=== PATIENT | female | born 1985 ===

== ENCOUNTER 2025-02-08 16:03 | Emergency (ER) | payer OTHER, SELFPAY ==
--- NOTE | ~2025-02-08 | XR_ITS ---
EXAMINATION: XR chest 2V 02/08/2025 16:38 INDICATION: Chest pain. Body aches. PROCEDURE: 2 view chest COMPARISON: No prior studies for comparison. FINDINGS: The lungs are clear. The cardiomediastinal silhouette is within normal limits. There are no pleural effusions. There is no pneumothorax suspected. IMPRESSION: 1: NO ACUTE CARDIOPULMONARY DISEASE. Reviewed, dictated and finalized at location A.
--- OUTSIDE RECORDS SUMMARY | 2025-02-08 16:05 | XMS_ITS | Clinical Summary ---
Author Organization [facility] Address [address] [place] [address] Care Team Providers Care Pyrometer Mechanic Name Role Phone No, Physician Primary Care Provider [phone] Allergies Active Allergy Reactions Criticality Noted Date Comments Codeine Hives Medium 03/17/2021 Penicillins Hives Medium 11/22/2018 Medications Hospital, Clinic, or Other Facility Administered Medication Ordered Dose Route Frequency Start Date End Date Status etonogestreL (NEXPLANON) implant 68 mgIndications:Pregna ncy Contraception 68 mg subderm Continuous (implanted device) 03/28/2024 03/28/2027 Active Active Problems Problem Noted Date Diagnosed Date Gonorrhea 01/24/2020 Overview (01/24/2020): Patient diagnosed with gonorrhea on admission and received 250mg of ceftriaxone and 1000mg of azithromycin. CT and trich negative. [] GIL [] Partner treatment Polysubstance abuse 01/24/2020 Overview (01/24/2020): [facility] admission: Patient with reported meth use last 2 days prior to admission and has been smoking meth for years. UDS also positive for fentanyl; however, patient denied ever having used. COWS scoring <5 throughout admission without signs or symptoms of withdrawal. SW phone consultation completed, and patient declined further resources connection stating meth use not an ongoing problem [] UDS on admission Supervision of 01/24/2020 Overview (01/24/2020): First Trimester: [x] Dating Criteria: 3T [x] Labs: Rh pos/Ab none/HIV NR/Rub imm/RPR NEG/HepB NR/GC/CT pos/neg [x] Genetic Screening: not performed [] Hgb electrophoresis (if indicated): [x] GC/CT/trich [] UCx: [] Pap: [] ASA ppx [] PNBHS referral (if indicated) [] Provided info on classes 2nd Trimester: [] Anatomy ultrasound [] CBC [] 1hr gtt at 24-28wks: [] Flu Shot (Sep-Jun) [x] Tdap (27-36wks): given 01/18 [] Rhogam (if Rh neg): 3rd Trimester: [x] CBC/HIV/RPR/T&S [x] GBS at 36 weeks: negative 01/17 [x] GC/CT/trich *s/p BMZ^01/19* Counseling: [x] Method of delivery: anticipate [x] Method of contraception: nexplanon [x] Method of feeding: undecided Threatened premature labor in third trimester Overview (01/24/2020): [facility] ADMISSION 01/17-01/18: Patient with a history of labor presented as a transfer from OSH for concern of PTL. SSE on admission revealed small amounts of dark, pink mucous with negative Valsalva. SVE at OSH was 2/80/-[address] [facility] 3/50/-3 x2. She received 2L of fluids boluses and nifedipine for tocolysis. She was given 2 doses of BMZ with window up on 01/19 at 1500. The following day, she had no contractions and a stable SVE at 3/50/-3. Tobacco use 01/24/2020 Limited care in third trimester 020 Overview (01/24/2020): - Dated by US 01/17 at [facility] when presented in labor Gestational hypertension, third trimester 2019 Overview (01/24/2020): - gHTN diagnosed during [facility] admission with mild range blood pressures >4 hours apart. PreE labs sent and within normal limits and UPC of 0.08. [] weekly labs [] twice weekly testing [] serial growth (last 7/2, 2164g (50%) w/ normal anatomy, dating US) [] IOL at 37 weeks Encounters Date Type Department Care Team Description 02/08/2025 3:06 PM CDT - 02/08/2025 3:[address] [facility] Emergency Department [address] [place] [id number] Discharge Disposition: Left Against Medical Advice 02/07/2025 9:21 PM CDT - 02/08/2025 1:43 AM CDT Emergency [address] [address] Discharge Disposition: Left Against Medical Advice from Last 3 Months Immunizations Immunization Administration Dates Next Due Tdap 01/19/2020 Surgical History Surgery Date Site/Laterality Comments US ABDOMEN COMPLETE W LIVER DOPPLER (C) 01/17/2018 R ight US ABDOMEN COMPLETE W LIVER DOPPLER (C) 02/11/2018 R ight BREAST BIOPSY Left Medical History Medical History Date Comments Hypertension Preeclampsia, third trimester la [facility] pg Mental disorder depression Family History Medical History Relation Name Comments Breast cancer Neg Hx Ovarian cancer Neg Hx Social History Tobacco Use Types Packs/Day Years Used Date Smoking Tobacco: Every Day Cigarettes Alcohol Use Standard Drinks/Week Comments Not Currently 0 (1 standard drink = 0.6 oz pur e alcohol) AUDIT-C Answer Date Recorded Q1: How often do you have a drink containing alc ohol? Never 04/15/2021 Average Number of Drinks Not on file 021 Frequency of Binge Drinking Not on file 03/21 Personal Safety Answer Date Recorded Have you ever been in or are you currently in a harmful physical or emotional relationship or is someone making you feel afraid or unsafe? 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 Gender Identity Not on file Sexual Orientation Not on file Obstetrics History Para Term AB IAB SAB Ectopic Multiple Livin g Live Births 9 8 6 1 8 Date Outcome GA Total Labor Labor/2nd/3rd Weight Sex Type Anes PTL Isabel A1 A5 Name Clin Term Term Term Term Term Term Para Last Filed Vital Signs Vital Sign Reading Time Taken Comments Blood Pressure 107/76 02/07/2025 11:44 PM CDT Pulse 86 02/07/2025 11:44 PM CDT Temperature 36.3 C (97.3 F) 02/07/2025 9:22 PM CDT Respiratory Rate 18 02/07/2025 11:44 PM CDT Oxygen Saturation 100% 02/07/2025 11:44 PM CDT Inhaled Oxygen Concentration - - Weight 74.4 kg (164 lb 0.4 oz) 02/07/2025 9:30 P M CDT Height 162.6 cm (5' 4.02) 03/28/2024 12:54 PM C DT Body Mass Index 28.14 03/28/2024 12:54 PM CDT Plan of Treatment Health Maintenance Due Date Last Done Comments Cervical Cancer Screening 1986 Depression Screening 1986 Hepatitis C Screening 1986 Varicella Vaccines (1 of 2 - 13+ 2-dose series) 1999 Regular Well Visit/Exam 18-64 2004 Pneumococcal vaccine <65 (1 of 2 - PCV) 2005 Influenza Vaccine (#1) 2025 08/13/2018, 2005 DTaP/Tdap/Td Vaccine (9 - Td or Tdap) 01/18/2030 01/19/2020, 08/13/2018, 12/13/2011, Additional history exists Hepatitis B Screening Completed 12/22/1996 , 08/30/1996, 06/28/1996 HPV Vaccines Aged Out No longer eligi ble based on patient's age to complete this topic Procedures Procedure Name Priority Date/Time Associated Diagnosis Comments EGFR STAT 02/07/2025 11:54 PM CDT DIFFERENTIAL AUTO STAT 02/07/2025 11: 54 PM CDT COMPREHENSIVE METABOLIC PANEL STAT 02/07/2025 11:54 PM CDT CBC WITH AUTO DIFFERENTIAL STAT 02/07/2025 11:54 PM CDT POCT HCG, URINE Routine 02/07/2025 9:52 PM CDT URINALYSIS, MICROSCOPIC ONLY STAT 02/07/2025 9:47 PM CDT URINALYSIS AND REFLEX TO MICROSCOPIC AND CULTURE STAT 02/07/2025 9:47 PM CDT from Last 3 Months Results * eGFR (02/07/2025 11:54 PM CDT) eGFR >90 >=60 mL/min/1. 73 m2 Comment: Interpretive Data Reference Interval Normal >/= 90 mL/min/1.73m2 Mildly decreased* 60 - 89 mL/min/1.73m2 Mildly to moderately decreased 45 - 59 mL/min/1.73m2 Moderately to severely decreased 30 - 44 mL/min/1.73m2 Severely decreased 15 - 29 mL/min/1.73m2 Kidney Failure < 15 mL/min/1.73m2 *Relative to young adult level Estimated glomerular filtration rate is determined by the 2020 CKD-EPI equation recommended by the National Kidney Foundation (A Unifying Approach to GFR Estimation: Recommendations of the NKF-ASK Task Force on Reassessing the Inclusion of Race in Diagnosing Kidney Disease, JASN 2020). The CKD-EPI equation should not be used for patients with unstable renal function and has not been validated in children and those over 70. Current interpretive data was last reviewed 2021. Blood 02/07/2025 11:5 4 PM CDT 02/08/2025 Ed Chaparro MD LAB BLOOD ORDERABLE S Final Result [facility] [address] [facility] [place] [address] * (ABNORMAL) Differential, auto (02/07/2025 11:54 PM CDT) Neutrophil abs 8.22(H) 1.50 - 6.50 K/cumm Imm gran abs 0.02 0.00 - 0.10 K/cumm [facility] Lymphocyte abs 1.27 0.80 - 3.30 K/cumm [facility] Monocyte abs 0.55 0.20 - 0.80 K/cumm [facility] Eosinophil abs 0.30 0.00 - 0.50 K/cumm [facility] Basophil abs 0.03 0.00 - 0.10 K/cumm [facility] Neutrophil pct 79.1 % [facility] Comment: Interpretive Data Percent cell count reference ranges are not reported, since discordance with absolute values may lead to misinterpretation of CBC data. Current Interpretive Data was last revised on 2017. Imm gran pct 0.2 % [facility] Comment: Interpretive Data Percent cell count reference ranges are not reported, since discordance with absolute values may lead to misinterpretation of CBC data. Current Interpretive Data was last revised on 2017. Lymphocyte pct 12.2 % [facility] Comment: Interpretive Data Percent cell count reference ranges are not reported, since discordance with absolute values may lead to misinterpretation of CBC data. Current Interpretive Data was last revised on 2017. Monocyte pct 5.3 % [facility] Comment: Interpretive Data Percent cell count reference ranges are not reported, since discordance with absolute values may lead to misinterpretation of CBC data. Current Interpretive Data was last revised on 2017. Eosinophil pct 2.9 % [facility] Comment: Interpretive Data Percent cell count reference ranges are not reported, since discordance with absolute values may lead to misinterpretation of CBC data. Current Interpretive Data was last revised on 2017. Basophil pct 0.3 % [facility] Comment: Interpretive Data Percent cell count reference ranges are not reported, since discordance with absolute values may lead to misinterpretation of CBC data. Current Interpretive Data was last revised on 2017. Blood 02/07/2025 11:5 4 PM CDT 02/08/2025 us Ed Chaparro MD LAB BLOOD ORDERABLE S Final Result [facility] [address] [facility] [place] [address] * (ABNORMAL) CBC with auto differential (02/07/2025 11:54 PM CDT) WBC 10.39(H) 3.80 - 9.90 K/cumm Hgb 16.4(H) 11.9 - 15.5 g/dL [facility] Hct 46.6(H) 35.6 - 45.5 % [facility] Plt 389 150 - 400 K/cumm [facility] MPV 9.3 9.1 - 12.3 fL [facility] RBC 4.71 3.90 - 5.20 M/cumm [facility] MCV 98.9(H) 81.3 - 96.4 fL [facility] MCH 34.8(H) 27.1 - 33.3 pg [facility] MCHC 35.2 32.3 - 35.7 g/dL [facility] RDW CV 11.4 11.1 - 14.9 % [facility] RDW SD 41.4 35.7 - 48.1 fL [facility] NRBC abs 0.00 0.00 - 0.01 K/cumm [facility] Blood Venous blood specimen / Unknown 02/07/2025 11:54 PM CDT 02/08/2025 Ed Chaparro MD LAB BLOOD ORDERABLE S Final Result [facility] [address] [facility] [place] [address] * Comprehensive metabolic panel (02/07/2025 11:54 PM CDT) Sodium 137 135 - 145 mmol/L Potassium, pl 4.3 3.3 - 4.9 mmol/L [facility] Chloride 104 97 - 110 mmol/L [facility] CO2 22 22 - 32 mmol/L [facility] Anion gap 11 2 - 15 mmol/L [facility] BUN 18 6 - 25 mg/dL [facility] Creatinine 0.83 0.60 - 1.10 mg/dL [facility] Glucose 134 70 - 199 mg/dL [facility] Comment: Interpretive Data Fasting glucose >/= 126 mg/dl is diagnostic for diabetes. Fasting is defined as no caloric intake for at least 8 hours. Fasting glucose between 100 mg/dl to 125 mg/dl is diagnostic of prediabetes. In a patient with classic symptoms of hyperglycemia or hyperglycemic crisis, a random glucose >/= 200 mg/dl is diagnostic for diabetes. In the absence of unequivocal hyperglycemia, results should be confirmed by repeat testing. The classification and Diagnosis of Diabetes Diabetes Care 2021; 46: S19-S40. Current interpretive data was last revised 2022. Calcium 8.9 8.5 - 10.3 mg/dL [facility] Bilirubin, total 0.9 0.1 - 1.2 mg/dL [facility] Protein, pl 7.8 6.5 - 8.5 g/dL [facility] Albumin 4.5 3.5 - 5.0 g/dL [facility] Alk phos 82 40 - 130 Units/L [facility] ALT 18 7 - 45 Units/L [facility] AST 17 10 - 45 Units/L [facility] Blood Venous blood specimen / Unknown 02/07/2025 11:54 PM CDT 02/08/2025 Ed Chaparro MD LAB BLOOD ORDERABLE S Final Result Performing Organization Address City/State/[facility] Co de Phone Number [facility] [address] [facility] Department [place] [address] * POCT hCG, urine (02/07/2025 9:52 PM CDT) HCG, ur, POC Negative Negative Lot Number [id number] QC Backgroud Clear Acceptable QC Control Line Acceptable Urine 02/07/2025 9:52 PM CDT Ed Chaparro MD POINT OF CARE TEST ORDERABLES Final Result * (ABNORMAL) Urinalysis reflex to microscopic and culture Urine (02/07/2025 9:47 PM CDT) Color, ur Yellow Yellow Clarity, ur Cloudy(A) Clear [facility] Specific gravity, ur 1.028 1.003 - 1.030 [facility] pH, urine 5.5 [facility] Comment: Interpretive Data U rine pH is affected by diet, medications, systemic acid-base disturbances, and renal tubular function. pH may affect urinary stone formation. For example, urine pH below 6.0 may help reduce the tendency for calcium phosphate stones and pH greater than 6.0 may reduce the tendency for uric acid stone formation. Source: [facility] Current Interpretive Data was last revised on 2017 Protein, ur ql Negative Negative [facility] Glucose, ur ql Negative Negative [facility] Ketones, ur Negative Negative [facility] Bilirubin, ur Negative Negative [facility] Blood, ur 1+(A) Negative [facility] Urobilinogen, ur <2.0 <2.0 mg/dL [facility] Nitrite, ur Negative Negative [facility] Leukocyte esterase, ur 4+(A) Negative [facility] UA reflex comment Reflex to microscopic UA will be performed. [facility] Urine 02/07/2025 9:47 PM CDT 02/07/2025 9:51 PM CDT us Ed Chaparro MD LAB MICROBIOLOGY - GENERAL ORDERABLES Final Result Performing Organization Address [facility] de Phone Number [address] [employer] [place] [address] * (ABNORMAL) Urinalysis, microscopic only (02/07/2025 9:47 PM CDT) WBC, ur 21-50(A) 0 - 5 /HPF RBC, ur 6-10(A) 0 - 2 /HPF [facility] Epithelial cells, squamous, ur 6-10(A) 0 - 5 /HPF [facility] Comment:Suggestive of contam ination. Consider recollection by clean catch. Mucous, ur Present(A) [facility] Culture Reflex Comment Reflex to urine culture will be performed. [facility] Urine 02/07/2025 9:47 PM CDT 02/07/2025 9:51 PM CDT us Ed Chaparro MD LAB URINE ORDERABLE S Final Result Performing Organization Address [facility] Co de Phone Number [address] [employer] [place] [address] from Last 3 Months Insurance [facility] Advance Directives For more information, please contact: [phone] * Full Code (Latest Code Status on File) Date Activated Date Inactivated Comments 01/18/2020 3:53 PM 01/19/2020 8:00 PM Care Teams Pyrometer Mechanic Relationship Specialty Start Date End Date No, Physician PCP - General 09/01/18
--- OUTSIDE RECORDS SUMMARY | 2025-02-08 16:05 | XMS_ITS | Referral Summary ---
Author Organization [facility] Address [address] [place] [address] Care Team Providers Care Manager Desktop Name Role Phone No, Physician Primary Care Provider [phone] Encounters Date Type Department Care Team Description 02/08/2025 3:06 PM CDT - 02/08/2025 3:58 PM CDT Emergency [facility] Emergency Department [facility] [place] [address] Discharge Disposition: Left Against Medical Advice 02/07/2025 9:21 PM CDT - 02/08/2025 1:43 AM CDT [address] [address] Discharge Disposition: Left Against Medical Advice from Last 3 Months Allergies Active Allergy Reactions Criticality Noted Date [...] 1hr gtt at 24-28wks: [] Flu Shot (Mar-Jun) [x] Tdap (27-36wks): given 01/18 [] Rhogam [...] at OSH was 2/80/-3 with exam in [facility] 3/50/-3 x2. She received 2L of fluids boluses and nifedipine for tocolysis. She was given 2 doses of BMZ with window up on 01/19 at 1500. The following day, she had no contractions and a stable SVE at 3/50/-3. Tobacco use 01/24/2020 Limited care in third trimester 020 Overview (01/24/2020): - Dated by US 01/17 at [facility] when presented in labor Gestational hypertension, third trimester 2019 Overview (01/24/2020): - gHTN diagnosed during [facility] admission with mild range blood pressures >4 hours apart. PreE labs sent and within normal limits and UPC of 0.08. 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 Gender Identity Not on file Sexual Orientation Not on file Last Filed Vital Signs Vital Sign Reading [...] 03/28/2024 12:54 PM CDT Plan of Treatment Not on file Procedures Procedure Name Priority Date/Time Associated Diagnosis [...] LAB BLOOD ORDERABLE S Final Result [facility] [address] [facility] [place] [address] * (ABNORMAL) Differential, auto (02/07/2025 11:54 PM CDT) Neutrophil abs 8.22(H) 1.50 - 6.50 K/cumm Imm gran abs 0.02 0.00 - 0.10 K/cumm [facility] Lymphocyte abs 1.27 0.80 - 3.30 K/cumm [facility] Monocyte abs 0.55 0.20 - 0.80 K/cumm [facility] Eosinophil abs 0.30 0.00 - 0.50 K/cumm [facility] Basophil abs 0.03 0.00 - 0.10 K/cumm [facility] Neutrophil pct 79.1 % [facility] Comment: Interpretive Data Percent cell count reference ranges are not reported, since discordance with absolute values may lead to misinterpretation of CBC data. Current Interpretive Data was last revised on 2017. Imm gran pct 0.2 % [facility] Comment: Interpretive Data Percent cell count reference ranges are not reported, since discordance with absolute values may lead to misinterpretation of CBC data. Current Interpretive Data was last revised on 2017. Lymphocyte pct 12.2 % [facility] Comment: Interpretive Data Percent cell count reference ranges are not reported, since discordance with absolute values may lead to misinterpretation of CBC data. Current Interpretive Data was last revised on 2017. Monocyte pct 5.3 % [facility] Comment: Interpretive Data Percent cell count reference ranges are not reported, since discordance with absolute values may lead to misinterpretation of CBC data. Current Interpretive Data was last revised on 2017. Eosinophil pct 2.9 % [facility] Comment: Interpretive Data Percent cell count reference ranges are not reported, since discordance with absolute values may lead to misinterpretation of CBC data. Current Interpretive Data was last revised on 2017. Basophil pct 0.3 % [facility] Comment: Interpretive Data Percent cell count reference ranges are not reported, since discordance with absolute values may lead to misinterpretation of CBC data. Current Interpretive Data was last revised on 2017. Blood 02/07/2025 11:5 4 PM CDT 02/08/2025 us Ed Chaparro MD LAB BLOOD ORDERABLE S Final Result Performing Organization Address City/[facility]/ZIP Co de Phone Number [facility] [address] [place] [address] * (ABNORMAL) CBC with auto differential (02/07/2025 11:54 PM CDT) Pathologist [facility] WBC 10.39(H) 3.80 - 9.90 K/cumm Hgb 16.4(H) 11.9 - 15.5 g/dL [facility] Hct 46.6(H) 35.6 - 45.5 % [facility] Plt 389 150 - 400 K/cumm [facility] MPV 9.3 9.1 - 12.3 fL [facility] RBC 4.71 3.90 - 5.20 M/cumm [facility] MCV 98.9(H) 81.3 - 96.4 fL [facility] MCH 34.8(H) 27.1 - 33.3 pg [facility] MCHC 35.2 32.3 - 35.7 g/dL [facility] RDW CV 11.4 11.1 - 14.9 % [facility] RDW SD 41.4 35.7 - 48.1 fL [facility] NRBC abs 0.00 0.00 - 0.01 K/cumm [facility] Blood Venous blood specimen / Unknown 02/07/2025 11:54 PM CDT 02/08/2025 us Ed Chaparro MD LAB BLOOD ORDERABLE S Final Result Performing Organization Address City/[facility]/ZIP Co de Phone Number [facility] [address] [place] [address] * Comprehensive metabolic panel (02/07/2025 11:54 PM CDT) Pathologist [facility] Sodium 137 135 - 145 mmol/L Potassium, pl 4.3 3.3 - 4.9 mmol/L [facility] Chloride 104 97 - 110 mmol/L [facility] CO2 22 22 - 32 mmol/L [facility] Anion gap 11 2 - 15 mmol/L [facility] BUN 18 6 - 25 mg/dL [facility] Creatinine 0.83 0.60 - 1.10 mg/dL [facility] Glucose 134 70 - 199 mg/dL [facility] Comment: Interpretive Data Fasting glucose >/= [...] 2022. Calcium 8.9 8.5 - 10.3 mg/dL [facility] Bilirubin, total 0.9 0.1 - 1.2 mg/dL [facility] Protein, pl 7.8 6.5 - 8.5 g/dL [facility] Albumin 4.5 3.5 - 5.0 g/dL [facility] Alk phos 82 40 - 130 Units/L [facility] ALT 18 7 - 45 Units/L [facility] AST 17 10 - 45 Units/L [facility] Blood Venous blood specimen / Unknown 02/07/2025 11:54 PM CDT 02/08/2025 us Ed Chaparro MD LAB BLOOD ORDERABLE S Final Result [facility] [address] [facility] Department [place] [address] * POCT hCG, urine (02/07/2025 9:52 PM CDT) [facility] HCG, ur, POC Negative Negative Lot Number [id number] QC Backgroud Clear Acceptable QC Control Line Acceptable Urine 02/07/2025 9:52 PM CDT Ed Chaparro MD POINT OF CARE TEST ORDERABLES Final Result * (ABNORMAL) Urinalysis reflex to microscopic and culture Urine (02/07/2025 9:47 PM CDT) Color, ur Yellow Yellow Clarity, ur Cloudy(A) Clear [facility] Specific gravity, ur 1.028 1.003 - 1.030 [facility] pH, urine 5.5 [facility] Comment: Interpretive Data U rine pH is affected by diet, medications, systemic acid-base disturbances, and renal tubular function. pH may affect urinary stone formation. For example, urine pH below 6.0 may help reduce the tendency for calcium phosphate stones and pH greater than 6.0 may reduce the tendency for uric acid stone formation. Source: [facility] Current Interpretive Data was last revised on 2017 Protein, ur ql Negative Negative [facility] Glucose, ur ql Negative Negative [facility] Ketones, ur Negative Negative [facility] Bilirubin, ur Negative Negative [facility] Blood, ur 1+(A) Negative [facility] Urobilinogen, ur <2.0 <2.0 mg/dL [facility] Nitrite, ur Negative Negative [facility] Leukocyte esterase, ur 4+(A) Negative [facility] UA reflex comment Reflex to microscopic UA will be performed. [facility] Urine 02/07/2025 9:47 PM CDT 02/07/2025 9:51 PM CDT Ed Chaparro MD LAB MICROBIOLOGY - GENERAL ORDERABLES Final Result [facility] Department [place] [address] * (ABNORMAL) Urinalysis, microscopic only (02/07/2025 9:47 PM CDT) WBC, ur 21-50(A) 0 - 5 /HPF RBC, ur 6-10(A) 0 - 2 /HPF [facility] Epithelial cells, squamous, ur 6-10(A) 0 - 5 /HPF [facility] Comment:Suggestive of contam ination. Consider recollection by clean catch. Mucous, ur Present(A) [facility] Culture Reflex Comment Reflex to urine culture will be performed. [facility] Urine 02/07/2025 9:47 PM CDT 02/07/2025 9:51 PM CDT us Ed Chaparro MD LAB URINE ORDERABLE S Final Result [facility] [address] [facility] [place] [address] from Last 3 Months Insurance [facility] Advance Directives For more information, please contact: [phone] * Full Code (Latest Code Status on File) Date Activated Date Inactivated Comments 01/18/2020 3:53 PM 01/19/2020 8:00 PM Care Teams Manager Desktop Relationship Specialty Start Date End Date No, Physician PCP - General 09/01/18
--- OUTSIDE RECORDS SUMMARY | 2025-02-08 16:05 | XMS_ITS | Encounter Summary ---
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
--- OUTSIDE RECORDS SUMMARY | 2025-02-08 16:06 | XMS_ITS | Clinical Summary ---
Author Organization [facility] Address [address] [place] [address] Care Team Providers Care Unit Assembler Name Role Phone None, Provider MD Primary Care Provider Unavaila ble Allergies Active Allergy Reactions Criticality Noted Date Comments Codeine Hives Medium 03/17/2021 Ibuprofen Hives Medium 11/22/2018 Penicillins Hives Medium 11/22/2018 Medications vitamin, low iron, ( VITAMIN WITH IRON) 27-0.8 MG tablet Take 1 tablet by mouth daily. Active Active Problems Problem Noted Date Diagnosed Date ([facility]) 06/14/2021 (spontaneous vaginal delivery) ([facility]) Labor, precipitous, antepartum ([facility]) Family History Medical History Relation Comments Hypertension Father Relation Status Comments Father Social History Tobacco Use Types Packs/Day Years Used Date Smoking Tobacco: Every Day Cigarettes Smokeless Tobacco: Never Tobacco Cessation:Ready to Q uit: No Alcohol Use Standard Drinks/Week Comments No 0 (1 standard drink = 0.6 oz pur e alcohol) Humiliation, Afraid, Rape, and Kick questionnair e Answer Date Recorded Fear of Current or Ex-Partner No Emotionally Abused No 04/21/2019 Physically Abused No 04/21/2019 Sexually Abused No 04/21/2019 AUDIT-C Answer Date Recorded Frequency of Alcohol Consumption Never 04/21/2019 Average Number of Drinks Not on file 019 Frequency of Binge Drinking Not on file 09/2018 Comments No Sex and Gender Information Value Date Recorded Sex Assigned at Not on file Legal Sex Female 5:28 PM CDT Gender Identity Not on file Sexual Orientation Not on file Last Filed Vital Signs Vital Sign Reading Time Taken Comments Blood Pressure 141/74 06/14/2021 4:24 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 pt moved slightly Pulse 99 06/14/2021 4:24 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 Temperature 37.1 C (98.7 F) 06/14/2021 4:24 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 Respiratory Rate 16 06/14/2021 4:24 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 Oxygen Saturation 99% 06/14/2021 4:2 4 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 Inhaled Oxygen Concentration - - Weight 90.7 kg (200 lb) 05/30/2021 11:4 5 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 Height 162.6 cm (5' 4) 05/30/2021 11:4 5 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 Body Mass Index 34.33 05/30/2021 11:45 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 Plan of Treatment Health Maintenance Due Date Last Done Comments Cervical Cancer Screening Pap Smear (Age 30 to 64) Every 3 Years 1986 Annual Physical 1989 Hepatitis C 2004 Pneumococcal Vaccine: Pediatrics (0 to 5 Years) and At-Risk Patients (6 to 49 Years) (1 of 2 - PCV) 2005 HPV Vaccines (1 - 3-dose SCDM series) 2013 Cervical Cancer Screening Pap with HPV Testing (Age 30 to 64) Every 5 Years 2016 Cervical Cancer Screening with HPV 2016 COVID-19 Vaccine (2023- season) 2024 DTaP, Tdap and Td Vaccines (9 - Td or Tdap) 01/18/2030 01/19/2020, 08/13/2018, 12/13/2011, Additional history exists Hepatitis B Vaccines Completed 12/22/1996, 08/30/1996, 06/28/1996 Meningococcal B Vaccine Aged Out No l onger eligible based on patient's age to complete this topic Meningococcal Vaccine Aged Out No rebecca anoop eligible based on patient's age to complete this topic RSV Immunizations Under 20 Months Aged Out No longer eligible based on patient's age to complete this topic Insurance [employer] Advance Directives * Full Code (Latest Code Status on File) Date Activated Date Inactivated Comments 06/14/2021 8:20 AM 06/14/2021 8:56 AM * Full Code Date Activated Date Inactivated Comments 04/19/2019 5:38 PM 04/20/2019 1:27 AM Care Teams Unit Assembler Relationship Specialty Start Date End Date None, Provider, PCP - General 06/14/21
--- OUTSIDE RECORDS SUMMARY | 2025-02-08 16:06 | XMS_ITS | Clinical Summary ---
Author Organization [facility] Address [address] [place] [address] Care Team Providers Care Paperboard Machine Operator Name Role Phone Xiang Hannah MD Primary Care Provider Source Comments [facility],non-owned Affiliates and Associated Physician Practices is amultiple site organization consisting of ambulatory clinics and hospital sitesin [place] and [place]. This disclosure is being madepursuant to the Care Everywhere program and may not contain all information available regarding this patient. Last updated 18.[facility] Signal Patterns Active Problems Problem Noted Date Diagnosed Date Velamentous insertion of umbilical cord, antepar ernesto 08/11/2018 Encounter for scre ening for malformation using ultrasound 05/19/2018 Social History Tobacco Use Types Packs/Day Years Used Date Smoking Tobacco: Never Assessed Comments No Sex and Gender Information Value Date Recorded Sex Assigned at Not on file Legal Sex Female 10:32 AM CDT Gender Identity Not on file Sexual Orientation Not on file Plan of Treatment Health Maintenance Due Date Last Done Comments HIV SCREENING 2001 HEPATITIS C SCREENING 07/19/2004 DTAP/TDAP/TD VACCINES (1 - Tdap) 2005 HEPATITIS B VACCINE (1 of 3 - 19+ 3-dose series) 2005 HPV VACCINE (1 - 3-dose SCDM series) 2013 COVID-19 VACCINE (1 - 2023-2 5 season) 2024 DEPRESSION SCREENING 07/20/2024 INFLUENZA VACCINE (#1) 2025 ZOSTER VACCINE (1 of 2) 2036 HIB VACCINE Aged Out No longer eligi ble based on patient's age to complete this topic MENINGOCOCCAL (Group B) VACC INE SHARED DECISION-MAKING Aged Out No longer eligibl e based on patient's age to complete this topic MENINGOCOCCAL GROUPS A/C/Y/W VACCINE Aged Out No longer eligible b ased on patient's age to complete this topic PNEUMOCOCCAL VACCINE Aged Out No long er eligible based on patient's age to complete this topic Insurance [facility] Care Teams Paperboard Machine Operator Relationship Specialty Start Date End Date Xiang Hannah MD PCP - General Family Medicine 05/10/18
--- OUTSIDE RECORDS SUMMARY | 2025-02-08 16:06 | XMS_ITS | Encounter Summary ---
Author Organization [facility] Address [address] [place] [address] Care Team Providers Care Derrick Worker Well Service Name Role Phone None, Provider Primary Care Provider Dharmesha ble Encounter Details Date Type Department Care Team (Late st Contact Info) Description 06/17/2021 Hospital Follow-up Call [facility] [place] [address] Dahiana Lopez, RN Social History Tobacco Use Types Packs/Day Years Used Date Smoking Tobacco: Every Day Cigarettes Smokeless Tobacco: Never Alcohol Use Standard Drinks/Week Comments No 0 [...] on file Sexual Orientation Not on file COVID-19 Exposure Response Date Recorded In the last month, have you been in contact with someone who was confirmed or suspected to have Coronavirus / COVID-19? 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 Answer Date of Assessment Author Status No 06/14/2021 9:22 AM TURNTABLE WORKER Activ e * Do you have serious difficulty walking or climbing stairs? Answer Date of Assessment Author Status No 06/14/2021 9:22 AM Dahiana Rivas RN Active * Do you have difficulty dressing or bathing? Answer Date of Assessment Author Status No 06/14/2021 9:22 AM Dahiana Rivas RN Active * Because of a physical, mental, or emotional condition, do you have difficulty doing errands alone such as visiting a doctor's office or shopping? Answer Date of Assessment Author Status No 06/14/2021 9:22 AM Dahiana Rivas RN Active documented as of this encounter Mental Status * Because of a physical, mental, or emotional condition, do you have serious difficulty concentrating, remembering, or making decisions? Answer Entry Date Author Status No 06/14/2021 9:22 AM Dahiana Rivas RN Active documented in this encounter Plan of Treatment Not on file documented as of this encounter Visit Diagnoses Not on filedocumented in this encounter Care Teams Derrick Worker Well Service Relationship Specialty Start Date End Date None, Provider, PCP - General 06/14/21 documented as of this encounter
--- OUTSIDE RECORDS SUMMARY | 2025-02-08 16:06 | XMS_ITS | Encounter Summary ---
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 Gender Identity Not on file Sexual Orientation Not on file documented as of this encounter Last Filed Vital Signs Vital Sign Reading [...] oz) 02/07/2025 9:30 P M CDT Height - - Body Mass Index 28.14 03/28/2024 12:54 PM CDT documented in this encounter Discharge Disposition Disposition Code Departure Means Destination Left Against Medical Advice documented in this encounter ED Notes * Krystal Riddle RN - 02/07/2025 9:28 PM CDT Pt here with c/o having nausea and vomiting since this morning around 0930, pt states she is unsureif it's something she ate, denies fever, reports hot and cold sweats, pt states her stomach hurts from vomiting all day. Pain 02/26, pt states she attempted to take tylenol at home but threw it up. documented in this encounter Plan of Treatment Pending Results Name Type Priority Associated Diagnoses Date /Time Urine culture Urine Microbiology STAT 9:47 PM CDT Scheduled Orders Name Type Priority Associated Diagnoses Orde r Schedule Urine culture Microbiology STAT Once for 1 Occurrences starting 02/07/2025 until 02/07/2025 documented as of this encounter Procedures Procedure Name Priority Date/Time Associated Diagnosis Comments EGFR STAT 02/07/2025 11:54 PM CDT DIFFERENTIAL AUTO STAT 02/07/2025 11: 54 PM CDT CBC WITH AUTO DIFFERENTIAL STAT 02/07/2025 11:54 PM CDT COMPREHENSIVE METABOLIC PANEL STAT 02/07/2025 11:54 PM CDT POCT HCG, URINE Routine 02/07/2025 9:52 PM CDT URINALYSIS AND REFLEX TO MICROSCOPIC AND CULTURE STAT 02/07/2025 9:47 PM CDT URINALYSIS, MICROSCOPIC ONLY STAT 02/07/2025 9:47 PM CDT documented in this encounter Results * eGFR (02/07/2025 11:54 PM CDT) [facility] eGFR >90 >=60 mL/min/1. 73 m2 Comment: [...] LAB BLOOD ORDERABLE S Final Result [facility] [address] [facility] [place] [address] * (ABNORMAL) Differential, auto (02/07/2025 11:54 PM CDT) Pathologist [facility] Neutrophil abs 8.22(H) 1.50 - 6.50 K/cumm Imm gran abs 0.02 0.00 - 0.10 K/cumm [facility] Lymphocyte abs 1.27 0.80 - 3.30 K/cumm [facility] Monocyte abs 0.55 0.20 - 0.80 K/cumm [facility] Eosinophil abs 0.30 0.00 - 0.50 K/cumm [facility] Basophil abs 0.03 0.00 - 0.10 K/cumm [facility] Neutrophil pct 79.1 % [facility] Comment: Interpretive Data Percent cell count reference ranges are not reported, since discordance with absolute values may lead to misinterpretation of CBC data. Current Interpretive Data was last revised on 2017. Imm gran pct 0.2 % [facility] Comment: Interpretive Data Percent cell count reference ranges are not reported, since discordance with absolute values may lead to misinterpretation of CBC data. Current Interpretive Data was last revised on 2017. Lymphocyte pct 12.2 % [facility] Comment: Interpretive Data Percent cell count reference ranges are not reported, since discordance with absolute values may lead to misinterpretation of CBC data. Current Interpretive Data was last revised on 2017. Monocyte pct 5.3 % [facility] Comment: Interpretive Data Percent cell count reference ranges are not reported, since discordance with absolute values may lead to misinterpretation of CBC data. Current Interpretive Data was last revised on 2017. Eosinophil pct 2.9 % [facility] Comment: Interpretive Data Percent cell count reference ranges are not reported, since discordance with absolute values may lead to misinterpretation of CBC data. Current Interpretive Data was last revised on 2017. Basophil pct 0.3 % [facility] Comment: Interpretive Data Percent cell count reference ranges are not reported, since discordance with absolute values may lead to misinterpretation of CBC data. Current Interpretive Data was last revised on 2017. Blood 02/07/2025 11:5 4 PM CDT 02/08/2025 Ed Chaparro MD LAB BLOOD ORDERABLE S Final Result [facility] [address] [facility] Department [place] [address] * Comprehensive metabolic panel (02/07/2025 11:54 PM CDT) Sodium 137 135 - 145 mmol/L Potassium, pl 4.3 3.3 - 4.9 mmol/L [facility] Chloride 104 97 - 110 mmol/L [facility] CO2 22 22 - 32 mmol/L [facility] Anion gap 11 2 - 15 mmol/L [facility] BUN 18 6 - 25 mg/dL [facility] Creatinine 0.83 0.60 - 1.10 mg/dL [facility] Glucose 134 70 - 199 mg/dL [facility] Comment: Interpretive Data Fasting glucose >/= [...] classification and Diagnosis of Diabetes Diabetes Care 202; 46: S19-S40. Current interpretive data was last revised 2022. Calcium 8.9 8.5 - 10.3 mg/dL [facility] Bilirubin, total 0.9 0.1 - 1.2 mg/dL [facility] Protein, pl 7.8 6.5 - 8.5 g/dL [facility] Albumin 4.5 3.5 - 5.0 g/dL [facility] Alk phos 82 40 - 130 Units/L [facility] ALT 18 7 - 45 Units/L [facility] AST 17 10 - 45 Units/L [facility] Blood Venous blood specimen / Unknown 02/07/2025 11:54 PM CDT 02/08/2025 us Ed Chaparro MD LAB BLOOD ORDERABLE S Final Result [facility] [address] [facility] Department [place] [address] * (ABNORMAL) CBC with auto differential (02/07/2025 11:54 PM CDT) WBC 10.39(H) 3.80 - 9.90 K/cumm Hgb 16.4(H) 11.9 - 15.5 g/dL [facility] Hct 46.6(H) 35.6 - 45.5 % [facility] Plt 389 150 - 400 K/cumm [facility] MPV 9.3 9.1 - 12.3 fL [facility] RBC 4.71 3.90 - 5.20 M/cumm [facility] MCV 98.9(H) 81.3 - 96.4 fL [facility] MCH 34.8(H) 27.1 - 33.3 pg [facility] MCHC 35.2 32.3 - 35.7 g/dL [facility] RDW CV 11.4 11.1 - 14.9 % [facility] RDW SD 41.4 35.7 - 48.1 fL [facility] NRBC abs 0.00 0.00 - 0.01 K/cumm [facility] Blood Venous blood specimen / Unknown 02/07/2025 11:54 PM CDT 02/08/2025 Ed Chaparro MD LAB BLOOD ORDERABLE S Final Result [facility] [address] [facility] Department [place] [address] * POCT hCG, urine (02/07/2025 9:52 PM CDT) Pathologist [facility] HCG, ur, POC Negative Negative Lot Number [id number] QC Backgroud Clear Acceptable QC Control Line Acceptable Urine 02/07/2025 9:52 PM CDT Ed Chaparro MD POINT OF CARE TEST ORDERABLES Final Result * (ABNORMAL) Urinalysis, microscopic only (02/07/2025 9:47 PM CDT) Pathologist [facility] WBC, ur 21-50(A) 0 - 5 /HPF RBC, ur 6-10(A) 0 - 2 /HPF [facility] Epithelial cells, squamous, ur 6-10(A) 0 - 5 /HPF [facility] Comment:Suggestive of contam ination. Consider recollection by clean catch. Mucous, ur Present(A) [facility] Culture Reflex Comment Reflex to urine culture will be performed. [facility] Urine 02/07/2025 9:47 PM CDT 02/07/2025 9:51 PM CDT us Ed Chaparro MD LAB URINE ORDERABLE S Final Result [facility] [address] [facility] [place] [address] * (ABNORMAL) Urinalysis reflex to microscopic and culture Urine (02/07/2025 9:47 PM CDT) Color, ur Yellow Yellow Clarity, ur Cloudy(A) Clear [facility] Specific gravity, ur 1.028 1.003 - 1.030 [facility] pH, urine 5.5 [facility] Comment: Interpretive Data U rine pH is affected by diet, medications, systemic acid-base disturbances, and renal tubular function. pH may affect urinary stone formation. For example, urine pH below 6.0 may help reduce the tendency for calcium phosphate stones and pH greater than 6.0 may reduce the tendency for uric acid stone formation. Source: [facility] Current Interpretive Data was last revised on 2017 Protein, ur ql Negative Negative [facility] Glucose, ur ql Negative Negative [facility] Ketones, ur Negative Negative [facility] Bilirubin, ur Negative Negative [facility] Blood, ur 1+(A) Negative [facility] Urobilinogen, ur <2.0 <2.0 mg/dL [facility] Nitrite, ur Negative Negative [facility] Leukocyte esterase, ur 4+(A) Negative [facility] UA reflex comment Reflex to microscopic UA will be performed. [facility] Urine 02/07/2025 9:47 PM CDT 02/07/2025 9:51 PM CDT us Ed Chaparro MD LAB MICROBIOLOGY - GENERAL ORDERABLES Final Result [facility] [id number] [facility] [place] [address] documented in this encounter Visit Diagnoses Not on filedocumented in this encounter Administered Medications Inactive Administered Medications - up to 3 most recent administrations Medication Order MAR Action Action Date Dose Rate Site ondansetron ODT (ZOFRAN-ODT) disintegrating tablet 4 mg 4 mg, oral, Once as needed, nausea, vomiting, If able to tolerate PO, Starting on 02/07/25 at 2131, For 1 dose, Do not administer if patient is Do not administer if patient had 8mg administered within 6 hours of patient presenting to ED Do not administer if patient was formally diagnosed with prolonged QT syndrome If administering by mouth, place tablet on tongue and allow to dissolve., Indications: nausea or vomitingIndications:nausea or vomiting Given 02/07/2025 11:19 PM CDT 4 mg documented in this encounter Active and Recently Administered Medications Times are shown in CDT. PRN Medication Order 02/06/2025 02/07/2025 02/08/2025 ondansetron ODT (ZOFRAN-ODT) disintegrating tablet 4 mg (COMPLETED) 4 mg, oral, Once as needed, nausea, vomiting, If able to tolerate PO, Starting on 02/07/25 at 2131, For 1 dose, Do not administer if patient is Do not administer if patient had 8mg administered within 6 hours of patient presenting to ED Do not administer if patient was formally diagnosed with prolonged QT syndrome If administering by mouth, place tablet on tongue and allow to dissolve., Indications: nausea or vomiting 2319 (Given - Provider: Robina Riddle RN) documented in this encounter Orders Medications Ordered That Franck ht Not Have Been Administered Count Last Ordered Date First Ordered Date ondansetron ODT (ZOFRAN-ODT) disintegrating tablet 4 mg 1 02/07/2025 IV Count Last Ordered Date First Orde red Date SALINE LOCK IV 1 02/07/2025 documented in this encounter Care Teams Assembly Line Inspector Relationship Specialty Start Date End Date No, Physician PCP - General 09/01/18 documented as of this encounter
[2025-02-08 16:07] VITALS: BP 125/72; PULSE 116; RESP 16; TEMP 36.6; O2SAT 99
--- NOTE | 2025-02-08 16:07 | ECG_ITS ---
Test Date: 2025-02-08 16:13:55 Measurements Intervals Almond Rate: 111 P: 76 TN: 117 QRS: 71 QRSD: 82 T: 58 QT: 328 QTc: 447 Interpretive Statements SINUS TACHYCARDIA WITH SHORT TN INTERVAL NONSPECIFIC T-WAVE ABNORMALITY ABNORMAL ECG No previous ECG available for comparison Electronically Signed On 02-08-2025 16:48:[address] M[address]D.
--- NOTE | 2025-02-08 16:12 | ED_ITS ---
HPI - Nausea/Vomiting/Diarrhea General Chief complaint: Nausea/Vomiting/Diarrhea Stated complaint: n/v, kidney pain, chest pain Time Seen by Provider: 02/08/25 16:10 Focused HPI: Patient is a 39-year-old female who presents to the ER with back pain, emesis, chest pain, and intermittent lower extremity swelling for the past 2 days. She reports she has never had these symptoms in the past, but reports I just feel sick. Patient went to an outside ER and was waiting for ?6 hours so she decided to come here for further evaluation. She reports she has been unable to keep anything down. Patient resports she has a history of hypertension and she is a cigarette smoker. She denies any alcohol or illicit drug use. GENERAL: Ill-appearing, well-nourished, and in no acute distress. HEAD: Normocephalic, atraumatic. CHEST: Clear to auscultation. ?No respiratory distress. HEART: Tachycardia, regular rhythm. NEURO: ?Alert and oriented x3. Patient screened in triage and initial orders placed.? ?Additional care and disposition to be based upon?diagnostic testing and treatment. Related Data Allergies Allergy/AdvReac Type Severity Reaction Status Date / Time Penicillins Allergy Unknown Verified 02/08/25 16:05 Course Vital Signs Vital signs: Vital Signs Temperature 36.6 C 02/08/25 16:07 Pulse Rate 116 H 02/08/25 16:07 Respiratory Rate 16 02/08/25 16:07 Blood Pressure 125/72 02/08/25 16:07 Pulse Oximetry 99 02/08/25 16:07 Temperature 36.6 C 02/08/25 19:11 Pulse Rate 87 02/08/25 19:11 Respiratory Rate 20 02/08/25 19:11 Blood Pressure 119/79 02/08/25 19:11 Pulse Oximetry 99 02/08/25 19:11 MDM - Nausea/Vomiting/Diarrhea Lab Data 02/08/25 16:18 02/08/25 16:18 Labs: Lab Results 02/08/25 02/08/25 02/08/25 Range/Units 16:18 16:18 16:18 WBC 7.8 (4.5-10.0) K/mm3 RBC 4.24 (4.2-5.4) M/mm3 Hgb 14.8 (12.0-15.0) g/dL Hct 41.3 (37.0-47.0) % MCV 97.4 (80-100) fl MCH 34.9 H (26-34) pg MCHC 35.8 (32-36) g/dl RDW 11.6 (11.5-14.5) % Plt Count 382 H (150-375) k/mm3 MPV 9.3 (7.4-10.4) fl Immature Gran % (Auto) 0.1 (0-0.5) % Neut % (Auto) 69.4 (45.5-73.1) % Lymph % (Auto) 16.1 L (18.3-44.2) % [place] % (Auto) 9.6 H (2.6-8.5) % Eos % (Auto) 4.3 (0-4.4) % Baso % (Auto) 0.5 (0.2-1.2) % Lymph # (Auto) 1.26 (0.9-3.2) K/mm3 [place] # (Auto) 0.8 H (0.1-0.6) K/mm3 Eos # (Auto) 0.3 (0-0.3) K/mm3 Baso # (Auto) 0.0 (0.0-0.1) K/mm3 Abs Immat Gran (auto) 0.01 (0.00-0.031) K/mm3 Absolute Neuts (auto) 5.4 (1.3-6.7) K/mm3 Absolute Nucleated RBC 0.000 (0.0-0.012) K/mm3 Nucleated RBC % 0.0 (0.0-0.2) % PT Cancelled 13.9 INR Cancelled 1.1 APTT Cancelled D-Dimer (<0.48) ug/mL Sodium (137-145) mmol/L Potassium (3.4-5.0) mmol/L Chloride (98-107) mmol/L Carbon Dioxide (22-30) mmol/L Anion Gap (4-12) mmol/L BUN (7-17) mg/dL Creatinine (0.7-1.0) mg/dL Estim Creat Clear Calc ml/min Estimated GFR (59 - ) Glucose (65-110) mg/dL Lactic Acid (0.7-2.0) mmol/L Calcium (8.4-10.2) mg/dL Total Bilirubin (0.2-1.3) mg/dL AST (14-36) U/L ALT (6-35) U/L Alkaline Phosphatase (38-126) U/L Troponin I (0.000-0.034) ng/mL Total Protein (6.3-8.2) g/dL Albumin (3.5-5.1) g/dL Lipase (23-300) U/L 02/08/25 Range/Units 16:18 WBC (4.5-10.0) K/mm3 RBC (4.2-5.4) M/mm3 Hgb (12.0-15.0) g/dL Hct (37.0-47.0) % MCV (80-100) fl MCH (26-34) pg MCHC (32-36) g/dl RDW (11.5-14.5) % Plt Count (150-375) k/mm3 MPV (7.4-10.4) fl Immature Gran % (Auto) (0-0.5) % Neut % (Auto) (45.5-73.1) % Lymph % (Auto) (18.3-44.2) % [place] % (Auto) (2.6-8.5) % Eos % (Auto) (0-4.4) % Baso % (Auto) (0.2-1.2) % Lymph # (Auto) (0.9-3.2) K/mm3 [place] # (Auto) (0.1-0.6) K/mm3 Eos # (Auto) (0-0.3) K/mm3 Baso # (Auto) (0.0-0.1) K/mm3 Abs Immat Gran (auto) (0.00-0.031) K/mm3 Absolute Neuts (auto) (1.3-6.7) K/mm3 Absolute Nucleated RBC (0.0-0.012) K/mm3 Nucleated RBC % (0.0-0.2) % PT INR APTT 25.7 D-Dimer 0.49 H (<0.48) ug/mL Sodium 134 L (137-145) mmol/L Potassium 3.8 (3.4-5.0) mmol/L Chloride 105 (98-107) mmol/L Carbon Dioxide 20 L (22-30) mmol/L Anion Gap 9 (4-12) mmol/L BUN 16 (7-17) mg/dL Creatinine 0.85 (0.7-1.0) mg/dL Estim Creat Clear Calc 79 ml/min Estimated GFR > 60 (59 - ) Glucose 117 H (65-110) mg/dL Lactic Acid 1.2 (0.7-2.0) mmol/L Calcium 8.7 (8.4-10.2) mg/dL Total Bilirubin 0.9 (0.2-1.3) mg/dL AST 22 (14-36) U/L ALT 19 (6-35) U/L Alkaline Phosphatase 70 (38-126) U/L Troponin I < 0.012 (0.000-0.034) ng/mL Total Protein 7.3 (6.3-8.2) g/dL Albumin 4.1 (3.5-5.1) g/dL Lipase 56 (23-300) U/L Discharge Plan Discharge Clinical Impression: Back pain, Chest pain Patient Disposition: Elopement After Seen by Prov Patient Language: Eritrean Follow-up/Referrals: PHYSICIAN,STAFF RESPIRATORY THERAPIST [Primary Care Provider] -
[2025-02-08 16:27] LABS: Hematocrit 41.3 % (37.0-47.0); Hemoglobin 14.8 g/dL (12.0-15.0); Immature Granulocyte Percent A 0.1 % (0-0.5); Lymphocytes Absolute Auto 1.26 K/mm3 (0.9-3.2); Mean Corpuscular HGB Conc 35.8 g/dl (32-36); Mean Corpuscular Hemoglobin 34.9 pg (26-34); Mean Corpuscular Volume 97.4 fl (80-100); Nucleated Red Blood Cells Absolute Auto 0.000 K/mm3 (0.0-0.012); Nucleated Red Blood Cells Perc 0.0 % (0.0-0.2); Platelet Count Result 382 k/mm3 (150-375); Red Blood Count 4.24 M/mm3 (4.2-5.4); White Blood Count 7.8 K/mm3 (4.5-10.0)
[2025-02-08 16:42] LABS: INR 1.1; Partial Thromboplastin Time 25.7 Seconds (22.3-36.8); Prothrombin Time 13.9 Seconds (11.1-14.7)
[2025-02-08 16:56] LABS: Alanine Aminotransferase 19 U/L (6-35); Albumin Level 4.1 g/dL (3.5-5.1); Alkaline Phosphatase 70 U/L (38-126); Anion Gap 9 mmol/L (4-12); Aspartate Amino Transferase 22 U/L (14-36); Bilirubin,Total 0.9 mg/dL (0.2-1.3); Blood Urea Nitrogen 16 mg/dL (7-17); Calcium 8.7 mg/dL (8.4-10.2); Carbon Dioxide 20 mmol/L (22-30); Chloride 105 mmol/L (98-107); Estimated CRCL calculation 79 ml/min; Estimated Glomerular Filt Rate > 60; Glucose 117 mg/dL (65-110); Lipase 56 U/L (23-300); Potassium 3.8 mmol/L (3.4-5.0); Sodium 134 mmol/L (137-145); Total Protein 7.3 g/dL (6.3-8.2)
[2025-02-08 17:08] LABS: Troponin I < 0.012 ng/mL (0.000-0.034)
[2025-02-08 19:11] VITALS: BP 119/79; PULSE 87; RESP 20; TEMP 36.6; O2SAT 99
--- NOTE | 2025-02-08 20:33 | PC.NURSE ---
Triage RNs and techs called out pt name multiple times to get re vitalized while they wait. Pt did not respond to any of the call outs and is no longer seen in triage. Pt left witout being seen.
--- OUTSIDE RECORDS SUMMARY | 2025-02-08 21:27 | XMS_ITS | Encounter Summary ---
Author Organization [facility] Healthcare Address [address] [place] [id number] Care Team Providers Care Roller Skate Assembler Name Role Phone No, Physician Primary Care Provider [phone] Encounter Details Date Type Department Care Team (Late st Contact Info) Description 02/08/2025 3:06 PM CDT - 02/08/2025 3:58 PM CDT [facility] Emergency Department [address] [place] [address] Discharge Disposition: Left Against Medical [...] on file Legal Sex Female 5:19 AM SUPERVISOR SAMPLE Gender Identity Not on file Sexual Orientation Not on file documented as of this encounter Discharge Disposition Disposition Code Departure Means Destination Left Against Medical Advice documented in this encounter Plan of Treatment Not on file documented as of this encounter Visit Diagnoses Not on filedocumented in this encounter Care Teams Roller Skate Assembler Relationship Specialty Start Date End Date No, Physician PCP - General 09/01/18 documented as of this encounter
--- OUTSIDE RECORDS SUMMARY | 2025-02-08 21:27 | XMS_ITS | Encounter Summary ---
Author Organization [facility] Address [address] [place] [address] Care Team Providers Care Varsity Baseball Coach Name Role Phone None, Provider Primary Care Provider Dharmesha ble Encounter Details Date Type Department Care Team (Late st Contact Info) Description 06/17/2021 Hospital Follow-up Call [facility] [place] [address] Dahiana Lopez, RN Social History [...] COVID-19? No / Unsure 06/14/2021 8:47 AM SPOOLER OPERATOR documented as of this encounter Functional Status * RETIRED Are you deaf or do you have serious difficulty hearing Answer Date of Assessment Author Status No 06/14/2021 9:22 AM SPOOLER OPERATOR Activ e * RETIRED Are you blind or do you have serious difficulty seeing, even when wearing glasses? Answer Date of Assessment Author Status No 06/14/2021 9:22 AM SPOOLER OPERATOR Activ e * Do you have serious [...] on filedocumented in this encounter Care Teams Varsity Baseball Coach Relationship Specialty Start Date End Date None, Provider, PCP - General 06/14/21 documented as of this encounter
--- OUTSIDE RECORDS SUMMARY | 2025-02-08 21:27 | XMS_ITS | Clinical Summary ---
Author Organization [facility] Address [address] [place] [address] Care Team Providers Care Records Management Analyst Name Role Phone Xiang Hannah MD Primary Care Provider Source Comments [facility],non-owned Affiliates and Associated Physician Practices is amultiple site organization consisting of ambulatory clinics and hospital sitesin [place], [place], [place] and [place]. This disclosure is being madepursuant to the Care Everywhere program and may not contain all information available regarding this patient. Last updated 18.[facility] [employer] Active Problems Problem Noted Date Diagnosed Date [...] patient's age to complete this topic Insurance [facility] Care Teams Records Management Analyst Relationship Specialty Start Date End Date Xiang Hannah MD PCP - General Family Medicine 05/10/18
--- OUTSIDE RECORDS SUMMARY | 2025-02-08 21:27 | XMS_ITS | Clinical Summary ---
Author Organization [facility] Address [address] [place] [address] Care Team Providers Care Plant Care Worker Name Role Phone None, Provider MD Primary Care Provider Unavaila ble Allergies Active Allergy Reactions Criticality Noted Date Comments Codeine Hives Medium 03/17/2021 Ibuprofen Hives Medium 11/22/2018 Penicillins Hives Medium 11/22/2018 Medications vitamin, low iron, ( VITAMIN WITH IRON) 27-0.8 MG tablet Take 1 tablet by mouth daily. Active Active Problems Problem Noted Date Diagnosed Date ([facility]) 06/14/2021 (spontaneous vaginal delivery) ([facility]) Labor, precipitous, antepartum ([facility]) Family History Medical History Relation Comments Hypertension [...] Comments Blood Pressure 141/74 06/14/2021 4:24 PM SUGAR CANE FARM MANAGER pt moved slightly Pulse 99 06/14/2021 4:24 PM SUGAR CANE FARM MANAGER Temperature 37.1 C (98.7 F) 06/14/2021 4:24 PM SUGAR CANE FARM MANAGER Respiratory Rate 16 06/14/2021 4:24 PM SUGAR CANE FARM MANAGER Oxygen Saturation 99% 06/14/2021 4:2 4 PM SUGAR CANE FARM MANAGER Inhaled Oxygen Concentration - - Weight 90.7 kg (200 lb) 05/30/2021 11:4 5 PM SUGAR CANE FARM MANAGER Height 162.6 cm (5' 4) 05/30/2021 11:4 5 PM SUGAR CANE FARM MANAGER Body Mass Index 34.33 05/30/2021 11:45 PM SUGAR CANE FARM MANAGER Plan of Treatment Health Maintenance Due Date [...] 5:38 PM 04/20/2019 1:27 AM Care Teams Plant Care Worker Relationship Specialty Start Date End Date None, Provider, PCP - General 06/14/21
--- OUTSIDE RECORDS SUMMARY | 2025-02-08 21:27 | XMS_ITS | Referral Summary ---
Author Organization [facility] Address [address] [place] [address] Care Team Providers Care Chief Of Surgery Name Role Phone No, Physician Primary Care Provider [phone] Encounters Date Type Department Care Team Description 02/08/2025 3:06 PM CDT - 02/08/2025 3:58 PM CDT Emergency [facility] Emergency Department [facility] [place] [address] Discharge Disposition: Left Against Medical Advice 02/07/2025 9:21 PM CDT - 02/08/2025 1:43 AM CDT [address] [address] Discharge Disposition: Left Against Medical Advice from [...] at OSH was 2/80/-3 with exam in [facility] 3/50/-3 x2. She received 2L of fluids boluses and nifedipine for tocolysis. She was given 2 doses of BMZ with window up on 01/19 at 1500. The following day, she had no contractions and a stable SVE at 3/50/-3. Tobacco use 01/24/2020 Limited care in third trimester 020 Overview (01/24/2020): - Dated by US 01/[address] 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 Gender Identity Not on file Sexual Orientation [...] LAB BLOOD ORDERABLE S Final Result [facility] [address] [facility] [place] [address] * (ABNORMAL) Differential, auto (02/07/2025 11:54 PM CDT) Neutrophil abs 8.22(H) 1.50 - 6.50 K/cumm Imm gran abs 0.02 0.00 - 0.10 K/cumm [facility] Lymphocyte abs 1.27 0.80 - 3.30 K/cumm [facility] Monocyte abs 0.55 0.20 - 0.80 K/cumm [facility] Eosinophil abs 0.30 0.00 - 0.50 K/cumm [facility] Basophil abs 0.03 0.00 - 0.10 K/cumm [facility] Neutrophil pct 79.1 % [facility] Comment: Interpretive Data Percent cell count reference ranges are not reported, since discordance with absolute values may lead to misinterpretation of CBC data. Current Interpretive Data was last revised on 2017. Imm gran pct 0.2 % [facility] Comment: Interpretive Data Percent cell count reference ranges are not reported, since discordance with absolute values may lead to misinterpretation of CBC data. Current Interpretive Data was last revised on 2017. Lymphocyte pct 12.2 % [facility] Comment: Interpretive Data Percent cell count reference ranges are not reported, since discordance with absolute values may lead to misinterpretation of CBC data. Current Interpretive Data was last revised on 2017. Monocyte pct 5.3 % [facility] Comment: Interpretive Data Percent cell count reference ranges are not reported, since discordance with absolute values may lead to misinterpretation of CBC data. Current Interpretive Data was last revised on 2017. Eosinophil pct 2.9 % [facility] Comment: Interpretive Data Percent cell count reference ranges are not reported, since discordance with absolute values may lead to misinterpretation of CBC data. Current Interpretive Data was last revised on 2017. Basophil pct 0.3 % [facility] Comment: Interpretive Data Percent cell count reference ranges are not reported, since discordance with absolute values may lead to misinterpretation of CBC data. Current Interpretive Data was last revised on 2017. Blood 02/07/2025 11:5 4 PM CDT 02/08/2025 us Ed Chaparro MD LAB BLOOD ORDERABLE S Final Result Performing Organization Address City/[facility]/ZIP Co de Phone Number [facility] [address] [place] [address] * (ABNORMAL) CBC with auto differential (02/07/2025 11:54 PM CDT) Pathologist [facility] WBC 10.39(H) 3.80 - 9.90 K/cumm Hgb 16.4(H) 11.9 - 15.5 g/dL [facility] Hct 46.6(H) 35.6 - 45.5 % [facility] Plt 389 150 - 400 K/cumm [facility] MPV 9.3 9.1 - 12.3 fL [facility] RBC 4.71 3.90 - 5.20 M/cumm [facility] MCV 98.9(H) 81.3 - 96.4 fL [facility] MCH 34.8(H) 27.1 - 33.3 pg [facility] MCHC 35.2 32.3 - 35.7 g/dL [facility] RDW CV 11.4 11.1 - 14.9 % [facility] RDW SD 41.4 35.7 - 48.1 fL [facility] NRBC abs 0.00 0.00 - 0.01 K/cumm [facility] Blood Venous blood specimen / Unknown 02/07/2025 11:54 PM CDT 02/08/2025 us Ed Chaparro MD LAB BLOOD ORDERABLE S Final Result Performing Organization Address City/[facility]/ZIP Co de Phone Number [facility] [address] [place] [address] * Comprehensive metabolic panel (02/07/2025 11:54 PM CDT) Pathologist [facility] Sodium 137 135 - 145 mmol/L Potassium, pl 4.3 3.3 - 4.9 mmol/L [facility] Chloride 104 97 - 110 mmol/L [facility] CO2 22 22 - 32 mmol/L [facility] Anion gap 11 2 - 15 mmol/L [facility] BUN 18 6 - 25 mg/dL [facility] Creatinine 0.83 0.60 - 1.10 mg/dL [facility] Glucose 134 70 - 199 mg/dL [facility] Comment: Interpretive Data Fasting glucose >/= [...] 2022. Calcium 8.9 8.5 - 10.3 mg/dL [facility] Bilirubin, total 0.9 0.1 - 1.2 mg/dL [facility] Protein, pl 7.8 6.5 - 8.5 g/dL [facility] Albumin 4.5 3.5 - 5.0 g/dL [facility] Alk phos 82 40 - 130 Units/L [facility] ALT 18 7 - 45 Units/L [facility] AST 17 10 - 45 Units/L [facility] Blood Venous blood specimen / Unknown 02/07/2025 11:54 PM CDT 02/08/2025 us Ed Chaparro MD LAB BLOOD ORDERABLE S Final Result [facility] [address] [facility] Department [place] [address] * POCT hCG, urine (02/07/2025 9:52 PM CDT) [facility] HCG, ur, POC Negative Negative Lot Number [id number] QC Backgroud Clear Acceptable QC Control Line Acceptable Urine 02/07/2025 9:52 PM CDT Ed Chaparro MD POINT OF CARE TEST ORDERABLES Final Result * (ABNORMAL) Urinalysis reflex to microscopic and culture Urine (02/07/2025 9:47 PM CDT) Color, ur Yellow Yellow Clarity, ur Cloudy(A) Clear [facility] Specific gravity, ur 1.028 1.003 - 1.030 [facility] pH, urine 5.5 [facility] Comment: Interpretive Data U rine pH is affected by diet, medications, systemic acid-base disturbances, and renal tubular function. pH may affect urinary stone formation. For example, urine pH below 6.0 may help reduce the tendency for calcium phosphate stones and pH greater than 6.0 may reduce the tendency for uric acid stone formation. Source: [facility] Current Interpretive Data was last revised on 2017 Protein, ur ql Negative Negative [facility] Glucose, ur ql Negative Negative [facility] Ketones, ur Negative Negative [facility] Bilirubin, ur Negative Negative [facility] Blood, ur 1+(A) Negative [facility] Urobilinogen, ur <2.0 <2.0 mg/dL [facility] Nitrite, ur Negative Negative [facility] Leukocyte esterase, ur 4+(A) Negative [facility] UA reflex comment Reflex to microscopic UA will be performed. [facility] Urine 02/07/2025 9:47 PM CDT 02/07/2025 9:51 PM CDT Ed Chaparro MD LAB MICROBIOLOGY - GENERAL ORDERABLES Final Result [facility] Department [place] [address] * (ABNORMAL) Urinalysis, microscopic only (02/07/2025 9:47 PM CDT) WBC, ur 21-50(A) 0 - 5 /HPF RBC, ur 6-10(A) 0 - 2 /HPF [facility] Epithelial cells, squamous, ur 6-10(A) 0 - 5 /HPF [facility] Comment:Suggestive of contam ination. Consider recollection by clean catch. Mucous, ur Present(A) [facility] Culture Reflex Comment Reflex to urine culture will be performed. [facility] Urine 02/07/2025 9:47 PM CDT 02/07/2025 9:51 PM CDT us Ed Chaparro MD LAB URINE ORDERABLE S Final Result [facility] [address] [facility] Department [place] [address] from Last 3 Months Insurance [facility] Advance Directives For more information, please contact: [phone] * Full Code (Latest Code Status on File) Date Activated Date Inactivated Comments 01/18/2020 3:53 PM 01/19/2020 8:00 PM Care Teams Chief Of Surgery Relationship Specialty Start Date End Date No, Physician PCP - General 09/01/18
--- OUTSIDE RECORDS SUMMARY | 2025-02-08 21:27 | XMS_ITS | Clinical Summary ---
Author Organization [facility] Address [address] [place] [address] Care Team Providers Care Cloth Stock Sorter Name Role Phone No, Physician Primary Care Provider [phone] Allergies Active Allergy Reactions Criticality Noted Date [...] at OSH was 2/80/-3 with exam in [facility] 3/50/-3 x2. She received 2L of fluids boluses and nifedipine for tocolysis. She was given 2 doses of BMZ with window up on 01/19 at 1500. The following day, she had no contractions and a stable SVE at 3/50/-3. 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 Gender Identity Not on file Sexual Orientation [...] LAB BLOOD ORDERABLE S Final Result [facility] [address] [facility] Department [place] [address] * (ABNORMAL) Differential, auto (02/07/2025 11:54 PM CDT) Neutrophil abs 8.22(H) 1.50 - 6.50 K/cumm Imm gran abs 0.02 0.00 - 0.10 K/cumm [facility] Lymphocyte abs 1.27 0.80 - 3.30 K/cumm [facility] Monocyte abs 0.55 0.20 - 0.80 K/cumm [facility] Eosinophil abs 0.30 0.00 - 0.50 K/cumm [facility] Basophil abs 0.03 0.00 - 0.10 K/cumm [facility] Neutrophil pct 79.1 % [facility] Comment: Interpretive Data Percent cell count reference ranges are not reported, since discordance with absolute values may lead to misinterpretation of CBC data. Current Interpretive Data was last revised on 2017. Imm gran pct 0.2 % [facility] Comment: Interpretive Data Percent cell count reference ranges are not reported, since discordance with absolute values may lead to misinterpretation of CBC data. Current Interpretive Data was last revised on 2017. Lymphocyte pct 12.2 % [facility] Comment: Interpretive Data Percent cell count reference ranges are not reported, since discordance with absolute values may lead to misinterpretation of CBC data. Current Interpretive Data was last revised on 2017. Monocyte pct 5.3 % [facility] Comment: Interpretive Data Percent cell count reference ranges are not reported, since discordance with absolute values may lead to misinterpretation of CBC data. Current Interpretive Data was last revised on 2017. Eosinophil pct 2.9 % [facility] Comment: Interpretive Data Percent cell count reference ranges are not reported, since discordance with absolute values may lead to misinterpretation of CBC data. Current Interpretive Data was last revised on 2017. Basophil pct 0.3 % [facility] Comment: Interpretive Data Percent cell count reference ranges are not reported, since discordance with absolute values may lead to misinterpretation of CBC data. Current Interpretive Data was last revised on 2017. Blood 02/07/2025 11:5 4 PM CDT 02/08/2025 us Ed Chaparro MD LAB BLOOD ORDERABLE S Final Result [facility] [address] [facility] Department [place] [address] * (ABNORMAL) CBC with auto differential (02/07/2025 11:54 PM CDT) WBC 10.39(H) 3.80 - 9.90 K/cumm Hgb 16.4(H) 11.9 - 15.5 g/dL [facility] Hct 46.6(H) 35.6 - 45.5 % [facility] Plt 389 150 - 400 K/cumm [facility] MPV 9.3 9.1 - 12.3 fL [facility] RBC 4.71 3.90 - 5.20 M/cumm [facility] MCV 98.9(H) 81.3 - 96.4 fL [facility] MCH 34.8(H) 27.1 - 33.3 pg [facility] MCHC 35.2 32.3 - 35.7 g/dL [facility] RDW CV 11.4 11.1 - 14.9 % [facility] RDW SD 41.4 35.7 - 48.1 fL [facility] NRBC abs 0.00 0.00 - 0.01 K/cumm [facility] Blood Venous blood specimen / Unknown 02/07/2025 11:54 PM CDT 02/08/2025 Ed Chaparro MD LAB BLOOD ORDERABLE S Final Result [facility] [address] [facility] Department [place] [address] * Comprehensive metabolic panel (02/07/2025 11:54 PM CDT) Sodium 137 135 - 145 mmol/L Potassium, pl 4.3 3.3 - 4.9 mmol/L [facility] Chloride 104 97 - 110 mmol/L [facility] CO2 22 22 - 32 mmol/L [facility] Anion gap 11 2 - 15 mmol/L [facility] BUN 18 6 - 25 mg/dL [facility] Creatinine 0.83 0.60 - 1.10 mg/dL [facility] Glucose 134 70 - 199 mg/dL [facility] Comment: Interpretive Data Fasting glucose >/= [...] Calcium 8.9 8.5 - 10.3 mg/dL [facility] Bilirubin, total 0.9 0.1 - 1.2 mg/dL [facility] Protein, pl 7.8 6.5 - 8.5 g/dL [facility] Albumin 4.5 3.5 - 5.0 g/dL [facility] Alk phos 82 40 - 130 Units/L [facility] ALT 18 7 - 45 Units/L [facility] AST 17 10 - 45 Units/L [facility] Blood Venous blood specimen / Unknown 02/07/2025 11:54 PM CDT 02/08/2025 Ed Chaparro MD LAB BLOOD ORDERABLE S Final Result Performing Organization Address City/State/[facility] Co de Phone Number [facility] [address] [facility] Department [place] [address] * POCT hCG, urine (02/07/2025 9:52 PM CDT) HCG, ur, POC Negative Negative Lot Number [id number] QC Backgroud Clear Acceptable QC Control Line Acceptable Urine 02/07/2025 9:52 PM CDT Ed Chaparro MD POINT OF CARE TEST ORDERABLES Final Result * (ABNORMAL) Urinalysis reflex to microscopic and culture Urine (02/07/2025 9:47 PM CDT) Color, ur Yellow Yellow Clarity, ur Cloudy(A) Clear [facility] Specific gravity, ur 1.028 1.003 - 1.030 [facility] pH, urine 5.5 [facility] Comment: Interpretive Data U rine pH is affected by diet, medications, systemic acid-base disturbances, and renal tubular function. pH may affect urinary stone formation. For example, urine pH below 6.0 may help reduce the tendency for calcium phosphate stones and pH greater than 6.0 may reduce the tendency for uric acid stone formation. Source: [facility] Current Interpretive Data was last revised on 2017 Protein, ur ql Negative Negative [facility] Glucose, ur ql Negative Negative [facility] Ketones, ur Negative Negative [facility] Bilirubin, ur Negative Negative [facility] Blood, ur 1+(A) Negative [facility] Urobilinogen, ur <2.0 <2.0 mg/dL [facility] Nitrite, ur Negative Negative [facility] Leukocyte esterase, ur 4+(A) Negative [facility] UA reflex comment Reflex to microscopic UA will be performed. [facility] Urine 02/07/2025 9:47 PM CDT 02/07/2025 9:51 PM CDT us Ed Chaparro MD LAB MICROBIOLOGY - GENERAL ORDERABLES Final Result Performing Organization Address [facility] de Phone Number [address] [place] [address] * (ABNORMAL) Urinalysis, microscopic only (02/07/2025 9:47 PM CDT) WBC, ur 21-50(A) 0 - 5 /HPF RBC, ur 6-10(A) 0 - 2 /HPF [facility] Epithelial cells, squamous, ur 6-10(A) 0 - 5 /HPF [facility] Comment:Suggestive of contam ination. Consider recollection by clean catch. Mucous, ur Present(A) [facility] Culture Reflex Comment Reflex to urine culture will be performed. [facility] Urine 02/07/2025 9:47 PM CDT 02/07/2025 9:51 PM CDT us Ed Chaparro MD LAB URINE ORDERABLE S Final Result Performing Organization Address [facility] Co de Phone Number [address] [place] [address] from Last 3 Months Insurance [facility] Advance Directives For more information, please contact: [phone] * Full Code (Latest Code Status on File) Date Activated Date Inactivated Comments 01/18/2020 3:53 PM 01/19/2020 8:00 PM Care Teams Cloth Stock Sorter Relationship Specialty Start Date End Date No, Physician PCP - General 09/01/18
--- OUTSIDE RECORDS SUMMARY | 2025-02-08 21:27 | XMS_ITS | Encounter Summary ---
Author Organization [facility] Healthcare Address [address] [place] [id number] Care Team Providers Care Dexigraph Operator Name Role Phone No, Physician Primary Care Provider [phone] Reason for Visit * Reason Comments Nausea Encounter Details Date Type Department Care Team (Late st Contact Info) Description 02/07/2025 9:21 PM CDT - 02/08/2025 1:43 AM CDT Emergency [address] [id number] Discharge Disposition: Left Against Medical Advice Social [...] on file Legal Sex Female 5:19 AM [employer] Gender Identity Not on file Sexual Orientation [...] Results * eGFR (02/07/2025 11:54 PM CDT) [facility] eGFR >90 >=60 mL/min/1. 73 m2 [...] MD LAB BLOOD ORDERABLE S Final Result [facility] [address] [facility] [place] [address] * (ABNORMAL) Differential, auto (02/07/2025 11:54 PM CDT) Pathologist [facility] Neutrophil abs 8.22(H) 1.50 - 6.50 K/cumm Imm gran abs 0.02 0.00 - 0.10 K/cumm [facility] Lymphocyte abs 1.27 0.80 - 3.30 K/cumm [facility] Monocyte abs 0.55 0.20 - 0.80 K/cumm [facility] Eosinophil abs 0.30 0.00 - 0.50 K/cumm [facility] Basophil abs 0.03 0.00 - 0.10 K/cumm [facility] Neutrophil pct 79.1 % [facility] Comment: Interpretive Data Percent cell count reference ranges are not reported, since discordance with absolute values may lead to misinterpretation of CBC data. Current Interpretive Data was last revised on 2017. Imm gran pct 0.2 % [facility] Comment: Interpretive Data Percent cell count reference ranges are not reported, since discordance with absolute values may lead to misinterpretation of CBC data. Current Interpretive Data was last revised on 2017. Lymphocyte pct 12.2 % [facility] Comment: Interpretive Data Percent cell count reference ranges are not reported, since discordance with absolute values may lead to misinterpretation of CBC data. Current Interpretive Data was last revised on 2017. Monocyte pct 5.3 % [facility] Comment: Interpretive Data Percent cell count reference ranges are not reported, since discordance with absolute values may lead to misinterpretation of CBC data. Current Interpretive Data was last revised on 2017. Eosinophil pct 2.9 % [facility] Comment: Interpretive Data Percent cell count reference ranges are not reported, since discordance with absolute values may lead to misinterpretation of CBC data. Current Interpretive Data was last revised on 2017. Basophil pct 0.3 % [facility] Comment: Interpretive Data Percent cell count reference ranges are not reported, since discordance with absolute values may lead to misinterpretation of CBC data. Current Interpretive Data was last revised on 2017. Blood 02/07/2025 11:5 4 PM CDT 02/08/2025 Ed Chaparro MD LAB BLOOD ORDERABLE S Final Result [facility] [address] [facility] [place] [address] * Comprehensive metabolic panel (02/07/2025 11:54 PM CDT) Sodium 137 135 - 145 mmol/L Potassium, pl 4.3 3.3 - 4.9 mmol/L [facility] Chloride 104 97 - 110 mmol/L [facility] CO2 22 22 - 32 mmol/L [facility] Anion gap 11 2 - 15 mmol/L [facility] BUN 18 6 - 25 mg/dL [facility] Creatinine 0.83 0.60 - 1.10 mg/dL [facility] Glucose 134 70 - 199 mg/dL [facility] Comment: Interpretive Data Fasting glucose >/= 126 [...] 2022. Calcium 8.9 8.5 - 10.3 mg/dL [facility] Bilirubin, total 0.9 0.1 - 1.2 mg/dL [facility] Protein, pl 7.8 6.5 - 8.5 g/dL [facility] Albumin 4.5 3.5 - 5.0 g/dL [facility] Alk phos 82 40 - 130 Units/L [facility] ALT 18 7 - 45 Units/L [facility] AST 17 10 - 45 Units/L [facility] Blood Venous blood specimen / Unknown 02/07/2025 11:54 PM CDT 02/08/2025 us Ed Chaparro MD LAB BLOOD ORDERABLE S Final Result [facility] [address] [facility] [place] [address] * (ABNORMAL) CBC with auto differential (02/07/2025 11:54 PM CDT) WBC 10.39(H) 3.80 - 9.90 K/cumm Hgb 16.4(H) 11.9 - 15.5 g/dL [facility] Hct 46.6(H) 35.6 - 45.5 % [facility] Plt 389 150 - 400 K/cumm [facility] MPV 9.3 9.1 - 12.3 fL [facility] RBC 4.71 3.90 - 5.20 M/cumm [facility] MCV 98.9(H) 81.3 - 96.4 fL [facility] MCH 34.8(H) 27.1 - 33.3 pg [facility] MCHC 35.2 32.3 - 35.7 g/dL [facility] RDW CV 11.4 11.1 - 14.9 % [facility] RDW SD 41.4 35.7 - 48.1 fL [facility] NRBC abs 0.00 0.00 - 0.01 K/cumm [facility] Blood Venous blood specimen / Unknown 02/07/2025 11:54 PM CDT 02/08/2025 Ed Chaparro MD LAB BLOOD ORDERABLE S Final Result [facility] [address] [facility] [place] [address] * POCT hCG, urine (02/07/2025 9:52 PM CDT) Pathologist [facility] HCG, ur, POC Negative Negative Lot Number [id number] QC Backgroud Clear Acceptable QC Control Line Acceptable Urine 02/07/2025 9:52 PM CDT Ed Chaparro MD POINT OF CARE TEST ORDERABLES Final Result * (ABNORMAL) Urinalysis, microscopic only (02/07/2025 9:47 PM CDT) Pathologist [facility] WBC, ur 21-50(A) 0 - 5 /HPF RBC, ur 6-10(A) 0 - 2 /HPF [facility] Epithelial cells, squamous, ur 6-10(A) 0 - 5 /HPF [facility] Comment:Suggestive of contam ination. Consider recollection by clean catch. Mucous, ur Present(A) [facility] Culture Reflex Comment Reflex to urine culture will be performed. [facility] Urine 02/07/2025 9:47 PM CDT 02/07/2025 9:51 PM CDT us Ed Chaparro MD LAB URINE ORDERABLE S Final Result [facility] [address] [facility] [place] [address] * (ABNORMAL) Urinalysis reflex to microscopic and culture Urine (02/07/2025 9:47 PM CDT) Color, ur Yellow Yellow Clarity, ur Cloudy(A) Clear [facility] Specific gravity, ur 1.028 1.003 - 1.030 [facility] pH, urine 5.5 [facility] Comment: Interpretive Data U rine pH is affected by diet, medications, systemic acid-base disturbances, and renal tubular function. pH may affect urinary stone formation. For example, urine pH below 6.0 may help reduce the tendency for calcium phosphate stones and pH greater than 6.0 may reduce the tendency for uric acid stone formation. Source: [facility] Current Interpretive Data was last revised on 2017 Protein, ur ql Negative Negative [facility] Glucose, ur ql Negative Negative [facility] Ketones, ur Negative Negative [facility] Bilirubin, ur Negative Negative [facility] Blood, ur 1+(A) Negative [facility] Urobilinogen, ur <2.0 <2.0 mg/dL [facility] Nitrite, ur Negative Negative [facility] Leukocyte esterase, ur 4+(A) Negative [facility] UA reflex comment Reflex to microscopic UA will be performed. [facility] Urine 02/07/2025 9:47 PM CDT 02/07/2025 9:51 PM CDT us Ed Chaparro MD LAB MICROBIOLOGY - GENERAL ORDERABLES Final Result [facility] [address] [facility] [place] [address] documented in this encounter Visit Diagnoses Not [...] 02/07/2025 documented in this encounter Care Teams Dexigraph Operator Relationship Specialty Start Date End Date No, Physician PCP - General 09/01/18 documented as of this encounter
== END 2025-02-08 17:00 | disposition left against medical advice (07) ==
PROVIDERS: Emergency Medicine; Emergency Provider Registered Nurse
DX: R07.9 Chest pain, unspecified (principal); M54.9 Dorsalgia, unspecified; R00.0 Tachycardia, unspecified; R94.31 Abnormal electrocardiogram [ECG] [EKG]
CPT/HCPCS: 36415; 71046; 80053; 83605; 83690; 84484; 85025; 85380; 85610; 85730; 93005; 99284